=== PATIENT | female | born 1935 | race Two or more races ===

== ENCOUNTER 2017-08-08 12:40 | Outpatient (CLI) | payer OTHER | END 2017-08-08 12:42 | disposition home or self-care (01) | LOC: RAD 501 12:40 | DX: M79.621 Pain in right upper arm (principal); M79.601 Pain in right arm ==

== ENCOUNTER 2017-09-26 09:26 | Outpatient (CLI) | payer OTHER | END 2017-09-26 09:37 | disposition home or self-care (01) | LOC: LAB 09:26 | DX: E55.9 Vitamin D deficiency, unspecified (principal); E21.3 Hyperparathyroidism, unspecified; E88.89 Other specified metabolic disorders; M81.8 Other osteoporosis without current pathological fracture; E83.42 Hypomagnesemia; E56.1 Deficiency of vitamin K; I10 Essential (primary) hypertension; E11.9 Type 2 diabetes mellitus without complications; E78.2 Mixed hyperlipidemia; M85.88 Other specified disorders of bone density and structure, other site; E03.8 Other specified hypothyroidism ==

== ENCOUNTER 2017-10-12 13:25 | Outpatient (CLI) | payer OTHER | END 2017-10-12 13:35 | disposition home or self-care (01) | LOC: RAD 13:25 | DX: M75.41 Impingement syndrome of right shoulder (principal); M25.561 Pain in right knee; M25.562 Pain in left knee ==

== ENCOUNTER 2017-12-28 09:05 | Outpatient (CLI) | payer OTHER | END 2017-12-28 09:45 | disposition home or self-care (01) | LOC: RAD 501 09:05 | DX: M25.511 Pain in right shoulder (principal) ==

== ENCOUNTER 2018-03-24 07:34 | Outpatient (CLI) | payer OTHER | END 2018-03-24 07:40 | disposition home or self-care (01) | LOC: LAB 07:34 | DX: I10 Essential (primary) hypertension (principal); E11.9 Type 2 diabetes mellitus without complications; E03.8 Other specified hypothyroidism; E78.2 Mixed hyperlipidemia; M19.91 Primary osteoarthritis, unspecified site; E56.1 Deficiency of vitamin K; E55.9 Vitamin D deficiency, unspecified; M85.89 Other specified disorders of bone density and structure, multiple sites ==

== ENCOUNTER 2021-11-01 14:08 | Outpatient (CLI) | payer OTHER | END 2021-11-01 14:16 | disposition home or self-care (01) | LOC: RAD 14:08 | PROVIDERS: ATTEND Internal Medicine Cardiovascular Disease | DX: M41.47 Neuromuscular scoliosis, lumbosacral region (principal); M51.37 Other intervertebral disc degeneration, lumbosacral region; M19.90 Unspecified osteoarthritis, unspecified site ==

== ENCOUNTER 2022-11-14 13:53 | Inpatient (IN) | payer OTHER ==
[~2022-11-14] VITALS: Ht 162.6 cm; Wt 68.0 kg
== END 2022-11-21 18:53 | disposition home or self-care (01) | DRG 389 ==
LOC: ER 13:53 → MEDJ 23:58
PROVIDERS: ADMIT Internal Medicine; ATTEND Internal Medicine
PROC: BW21YZZ Computerized Tomography (CT Scan) of Abdomen and Pelvis using Other Contrast (ICD-10-PCS; principal; 2022-11-14)
DX: K56.600 Partial intestinal obstruction, unspecified as to cause (principal); K57.32 Diverticulitis of large intestine without perforation or abscess without bleeding; D37.4 Neoplasm of uncertain behavior of colon; K52.9 Noninfective gastroenteritis and colitis, unspecified; K59.89 Other specified functional intestinal disorders; E87.6 Hypokalemia; I10 Essential (primary) hypertension; E11.9 Type 2 diabetes mellitus without complications; Z87.891 Personal history of nicotine dependence; Z74.01 Bed confinement status

== ENCOUNTER 2022-11-30 05:00 | Day surgery (SDC) | payer OTHER | END 2022-11-30 11:45 | disposition home or self-care (01) | LOC: AMB-ENDOS 05:00 | PROVIDERS: ATTEND Surgery | DX: C18.4 Malignant neoplasm of transverse colon (principal); K63.5 Polyp of colon; K57.30 Diverticulosis of large intestine without perforation or abscess without bleeding; K56.49 Other impaction of intestine; K59.00 Constipation, unspecified; K62.5 Hemorrhage of anus and rectum; Z20.822 Contact with and (suspected) exposure to COVID-19 ==

== ENCOUNTER 2022-12-21 07:33 | Outpatient (CLI) | payer OTHER | END 2022-12-21 07:40 | disposition home or self-care (01) | LOC: RAD 07:33 | PROVIDERS: ATTEND Surgery | DX: C18.3 Malignant neoplasm of hepatic flexure (principal); K92.2 Gastrointestinal hemorrhage, unspecified; K56.49 Other impaction of intestine ==

== ENCOUNTER 2022-12-28 08:31 | Inpatient (IN) | payer OTHER ==
[~2022-12-28] VITALS: Ht 162.6 cm; Wt 63.5 kg
[2022-12-28] MEDS ORDERED: AVAPRO300 MG PO (12:09)
[2022-12-28] MEDS ORDERED: HYDROCHLOROTHIA25 MG PO (12:09)
[2022-12-28] MEDS ORDERED: METFORMIN HCL500 M3 PO (12:09)
[2022-12-28] MEDS ORDERED: PEPCID20 MG PO (12:10)
[2022-12-28] MEDS ORDERED: D3-501250 MCG PO (12:11)
[2022-12-28] MEDS ORDERED: TYLENOL ARTHRI650 MG PO (12:11)
[2022-12-28] MEDS ORDERED: ABATINEX680 MG PO (12:11)
[2022-12-28] MEDS ORDERED: MIRALAX17 GM PO (12:12)
[2023-01-03] MEDS ORDERED: FAMOTIDINE40 MG (08:22)
[2023-01-03] MEDS ORDERED: MAXIMUM D3325 MCG (08:22)
[2023-01-03] MEDS ORDERED: FERROUS SULFAT325 MG (08:22)
[2023-01-03] MEDS ORDERED: PANTOPRAZOLE SO40 MG (08:23)
[2023-01-05] MEDS ORDERED: INTESTINEX680 M1 PO (15:06)
[2023-01-05] MEDS ORDERED: LEVSIN/SL0.125 MG SL (15:06)
[2023-01-05] MEDS ORDERED: INTEGRA F CAPS1 EACH PO (15:07)
== END 2023-01-05 17:19 | DRG 330 ==
LOC: O/R 01-02 05:50 → SURH 01-02 05:50
PROVIDERS: ADMIT Surgery; ATTEND Surgery
PROC: 07BB4ZZ Excision of Mesenteric Lymphatic, Percutaneous Endoscopic Approach (ICD-10-PCS; 2023-01-02)
PROC: 0DTF4ZZ Resection of Right Large Intestine, Percutaneous Endoscopic Approach (ICD-10-PCS; principal; 2023-01-02 13:00)
DX: C18.0 Malignant neoplasm of cecum (principal); K56.49 Other impaction of intestine; K57.30 Diverticulosis of large intestine without perforation or abscess without bleeding; N73.6 Female pelvic peritoneal adhesions (postinfective); N99.4 Postprocedural pelvic peritoneal adhesions; I10 Essential (primary) hypertension; Z20.822 Contact with and (suspected) exposure to COVID-19; E11.9 Type 2 diabetes mellitus without complications

== ENCOUNTER 2022-12-28 09:21 | Outpatient (CLI) | payer OTHER ==
[2022-12-28] MEDS ORDERED: HYDROCHLOROTHIA25 MG PO (12:09)
[2022-12-28] MEDS ORDERED: AVAPRO300 MG PO (12:09)
[2022-12-28] MEDS ORDERED: METFORMIN HCL500 M3 PO (12:09)
[2022-12-28] MEDS ORDERED: PEPCID20 MG PO (12:10)
[2022-12-28] MEDS ORDERED: D3-501250 MCG PO (12:11)
[2022-12-28] MEDS ORDERED: ABATINEX680 MG PO (12:11)
[2022-12-28] MEDS ORDERED: TYLENOL ARTHRI650 MG PO (12:11)
[2022-12-28] MEDS ORDERED: MIRALAX17 GM PO (12:12)
== END 2022-12-28 09:29 | disposition home or self-care (01) ==
LOC: RAD 09:21
PROVIDERS: ATTEND Internal Medicine Cardiovascular Disease
DX: M12.9 Arthropathy, unspecified (principal); R07.9 Chest pain, unspecified

== ENCOUNTER 2023-02-04 08:27 | Outpatient (CLI) | payer OTHER ==
[~2023-02-04 08:27] MED LIST: ABATINEX680 MG PO; AVAPRO300 MG PO; D3-501250 MCG PO; FAMOTIDINE40 MG; FERROUS SULFAT325 MG; HYDROCHLOROTHIA25 MG PO; INTEGRA F CAPS1 EACH PO; INTESTINEX680 M1 PO; LEVSIN/SL0.125 MG SL; MAXIMUM D3325 MCG; METFORMIN HCL500 M3 PO; MIRALAX17 GM PO; PANTOPRAZOLE SO40 MG; PEPCID20 MG PO; TYLENOL ARTHRI650 MG PO
== END 2023-02-04 08:33 | disposition home or self-care (01) ==
LOC: LAB 08:27
PROVIDERS: ATTEND Internal Medicine Hematology & Oncology
DX: D50.8 Other iron deficiency anemias (principal); I10 Essential (primary) hypertension; R74.02 Elevation of levels of lactic acid dehydrogenase [LDH]; K76.89 Other specified diseases of liver; C50.919 Malignant neoplasm of unspecified site of unspecified female breast; R97.8 Other abnormal tumor markers; C25.9 Malignant neoplasm of pancreas, unspecified; C56.9 Malignant neoplasm of unspecified ovary; R97.1 Elevated cancer antigen 125 [CA 125]; R97.0 Elevated carcinoembryonic antigen [CEA]; C18.0 Malignant neoplasm of cecum; R91.8 Other nonspecific abnormal finding of lung field; E11.22 Type 2 diabetes mellitus with diabetic chronic kidney disease

== ENCOUNTER 2024-02-19 07:25 | Day surgery (SDC) | payer OTHER ==
[2024-02-14 14:17] LABS: HEMATOCRIT 40.5 % (36.0-45.00); HEMOGLOBIN 13.7 g/dL (12.0-15.00); MEAN CELL VOLUME 88.2 fL (80.00-100.00); MEAN CORPUSCULAR HEMOGLOBIN 29.9 pg (27.00-32.0); MEAN CORPUSCULAR HGB CONC 33.9 g/dl (32.0-36.0); PLATELET COUNT 265 K/uL (150-450); RED BLOOD COUNT 4.59 M/uL (4.00-6.00); RED CELL DISTRIBUTION WIDTH 14.6 % (11.5-14.5)
[2024-02-19] MEDS ORDERED: fentaNYL CITRATE 50 MCG/ML AMPUL IV PUSH ONE (10:15)
[2024-02-19] MEDS ORDERED: MIDAZOLAM HCL 2 MG/2 ML VIAL IV ONE (10:15)
== END 2024-02-19 11:30 | disposition home or self-care (01) ==
LOC: AMB-ENDOS 07:25
PROVIDERS: ATTEND Surgery
DX: K57.30 Diverticulosis of large intestine without perforation or abscess without bleeding (principal); K57.32 Diverticulitis of large intestine without perforation or abscess without bleeding; Z85.038 Personal history of other malignant neoplasm of large intestine; I10 Essential (primary) hypertension

== ENCOUNTER 2024-10-19 08:37 | Emergency (ER) | payer OTHER ==
[~2024-10-19] VITALS: Ht 160 cm; Wt 60.3 kg
[2024-10-19 11:27] LABS: BASO % 0.3 % (0.1-1.2); EOS # 0.05 (0.04-0.54); EOS % 0.7 % (0.7-7.0); HEMATOCRIT 39.3 % (34.1-44.9); HEMOGLOBIN 13.1 g/dL (11.2-15.7); LYMPH # 1.36 (1.18-3.74); LYMPH % 19.1 % (19.3-53.1); MEAN CORPUSCULAR HEMOGLOBIN 28.9 pg (25.6-32.2); MONO % 8.4 % (4.7-12.5); NEUT # 5.08 (1.56-6.13); NEUT % 71.2 % (34.0-71.1); PLATELET COUNT 231 K/uL (163-369); RED BLOOD COUNT 4.54 M/uL (3.93-5.22); RED CELL DISTRIBUTION WIDTH 13.1 % (11.6-14.4)
[2024-10-19 11:55] LABS: INR 0.99; PARTIAL THROMBOPLASTIN TIME 24.8 SECONDS (22.0-34.0); PROTHROMBIN TIME 10.8 SECONDS (9.0-11.5)
[2024-10-19 12:00] LABS: ALBUMIN 3.1 gm/dL (3.4-5.0); BILIRUBIN TOTAL 0.76 mg/dL (0.3-1.2); BILIRUBIN,CONJUGATED 0.19 mg/dL (0.0-0.2); BILIRUBIN,UNCONJUGATED 0.57 mg/dL (0.0-0.6); CALCIUM 9.5 mg/dL (8.5-10.1); CREATININE SERUM 1.01 mg/dL (0.55-1.02); GFR 51.85; GLOBULINA 4.4 G/DL (2.4-3.5); POTASSIUM 4.13 mEq/L (3.5-5.1); TOTAL PROTEIN 7.5 gm/dL (6.4-8.2)
[2024-10-19 13:42] LABS: URINE APPEARANCE Clear; URINE BILIRRUBIN Negative (NEGATIVE); URINE BLOOD Small; URINE COLOR Yellow; URINE GLUCOSE Negative (NEGATIVE); URINE KETONE Negative (NEGATIVE); URINE LEUKOCYTE Negative; URINE NITRATE Negative; URINE PROTEIN Trace (NEGATIVE); URINE UROBILINOGEN 0.2 E.U./dl
[2024-10-19 13:46] LABS: URINE BACTERIA 59.9 uL (0.0-1933); URINE EPITHELIAL CELLS 2.3 uL (0.0-38.8); URINE RBC 35.2 uL (0.0-20.8); URINE WBC 5.9 uL (0.0-23.2)
[2024-10-19 13:56] LABS: URINE CAST 0.14 uL (0.0-1.40)
[2024-10-19] MEDS ORDERED: KETOROLAC TROMETHAMINE 30 MG VIAL ONE (15:28)
[2024-10-19] MEDS ORDERED: KETOROLAC TROMETHAMINE 30 MG VIAL IV ONE (15:45)
== END 2024-10-19 19:48 | disposition home or self-care (01) ==
LOC: ER 08:46
PROVIDERS: Emergency Medicine
DX: K57.90 Diverticulosis of intestine, part unspecified, without perforation or abscess without bleeding (principal); R10.9 Unspecified abdominal pain; C34.90 Malignant neoplasm of unspecified part of unspecified bronchus or lung; C18.9 Malignant neoplasm of colon, unspecified
CPT/HCPCS: 36415; 74176; 96365; 99284; J1885